=== PATIENT | female | born 1965 | race Caucasian/White ===

== ENCOUNTER 2018-06-25 18:31 | Emergency (ER) | payer MEDICAID ==
[~2018-06-25] VITALS: Ht 160 cm; Wt 77.0 kg
[2018-06-25 18:35] VITALS: Ht 160 cm; Wt 77.0 kg
[2018-06-25] MEDS ORDERED: MECLIZINE 12.5 MG TAB PO ONE (19:00)
[2018-06-25] MEDS ORDERED: MECL12.574 PO (19:59)
--- NOTE | 2018-06-25 20:01 | ERD ---
ER Documentation Chief Complaint Chief Complaint primary complaint anxiety/stress all day, adds c/o dizziness & AGRAWAL since am HPI Patient is a 53-year-old female with thyroid disease who presents with dizziness. The patient was brought in by ambulance. She felt dizzy started 3 days ago. She felt anxious as well and said that she has been under a lot of stress recently. She had nausea but no vomiting. She feels like the room is spinning. She has had no treatment as of yet. She has no fevers. She had cough, fever, and ear pain 2 weeks ago. She says "I think this might be related to stress". Upon review of old medical records this is the patient's first visit to the emergency department. She does not currently have a primary doctor. ROS All systems reviewed and are negative except as per history of present illness. Medications Home Meds Active Scripts Meclizine Hcl* (Antivert*) 12.5 Mg Tab, 25 MG PO Q6H PRN for DIZZINESS, #20 TAB Prov:MEGHAN GALVIN MD 06/25/18 Allergies Allergies: Coded Allergies: No Known Allergy (Unverified , 06/25/18) PMhx/Soc Medical and Surgical Hx: pt denies Surgical Hx History of Surgery: No Anesthesia Reaction: No Hx Neurological Disorder: No Hx Respiratory Disorders: No Hx Cardiac Disorders: No Hx Psychiatric Problems: No Hx Miscellaneous Medical Probl: No (HYPOTHYROIDISM) Hx Alcohol Use: No Hx Substance Use: No Hx Tobacco Use: No Smoking Status: Never smoker FmHx Family History: No diabetes Physical Exam Vitals Vital Signs Date Temp Pulse Resp B/P (MAP) Pulse Ox O2 O2 Flow FiO2 Time Delivery Rate 06/25/18 98.1 73 20 136/83 98 Room Air 20:17 (100) 06/25/18 78 18 137/85 97 Room Air 19:07 (102) 06/25/18 98.3 76 17 142/71 97 18:35 (94) Physical Exam Const: No acute distress Head: Atraumatic Eyes: Normal Conjunctiva ENT: Normal External Ears, Nose and Mouth. Neck: Full range of motion. No meningismus. Resp: Clear to auscultation bilaterally Cardio: Regular rate and rhythm, no murmurs Abd: Soft, non tender, non distended. Normal bowel sounds Skin: No petechiae or rashes Back: No midline or flank tenderness Ext: No cyanosis, or edema Neur: Awake and alert, cranial nerves II through XII intact, strength is 5 out of 5 in all 4 tremors, no slurred speech, negative pronator drift Psych: Normal Mood and Affect Results 24 hrs Laboratory Tests Test 06/25/18 19:06 Bedside Glucose 122 mg/dL Current Medications Medications Dose Sig/Stef Start Time Status Last (Trade) Ordered Route PRN Stop Time Admin Dose Reason Admin Meclizine 25 mg ONCE ONCE 06/25/18 DC 06/25/18 HCl PO 19:00 18:49 (Antivert) 06/25/18 19:01 Procedures/MDM Accu-Chek is normal. EKG read by me: Rate/Rhythm: Regular rate and rhythm at a rate of 77 Intervals: Normal Impression: No evidence of ischemia or arrhythmia Patient is a 51-year-old female presents with dizziness. Accu-Chek is normal. EKG shows no signs of ischemia. I believe her symptoms are consistent with vertigo. I doubt stroke, intracranial mass, or intracranial hemorrhage. I doubt stroke. I believe the risk of doing a CT scan of the brain outweigh the benefits. The patient will be given meclizine and will be discharged with a prescription for meclizine. She will need to follow-up with a local clinics within 1 week and can return if symptoms worsen. Departure Diagnosis: Primary Impression: Dizziness Condition: Fair Patient Instructions: Dizziness, Unk Cause [facility]: [facility] Usted se agrawal hecho un examen mdico de control que le indica que no est en jo condicin que requiera tratamiento urgente en el Departamento de Emergencia. Un estudio ms profundo y el tratamiento de anguiano condicin pueden esperar sin ningn riesgo hasta que usted sea atendida/o en el consultorio de anguiano mdico o jo clnica. Es responsabilidad suya arreglar jo laurita para el seguimiento del sandi. MANEJO DE CONDICIONES NO URGENTES EN EL FUTURO 1) Si usted tiene un mdico de atencin primaria: Usted debera llamar a anguiano mdico de atencin primaria antes de venir al departamento de emergencia. Despus de las horas de consultorio, anguiano doctor o anguiano asociado/a est disponible por telfono. El mdico o enfermero de kike en el servicio telefnico puede asesorarle por julio medio para atender el problema, o sandi contrario se puede programar jo laurita. 2) Si usted no tiene un mdico de atencin primaria: Llame al mdico o clnica de referencia que aparece abajo rani las horas de consultorio para hacer jo laurita para que le vean. CLINICAS: [place] [id number] [phone] [facility] [phone] [address] [facility]. [facility] [phone] [facility]. [place] [phone] [facility] [place] [id number] [phone] [facility]. [phone] [address] [place] [address] Additional Instructions: Llame al doctor nombrado abajo (Referral Sources) MAANA y brian jo LAURITA PARA DENTRO DE JO SEMANA. Dgale a la secretaria que nosotros le instruimos hacer esta laurita.Avise o llame si anguiano condicin se empeora antes de la laurita. MEGHAN GALVIN MD Jun 25, 2018 20:01
[2018-06-25 20:17] VITALS: BP 136/83; PULSE 73; RESP 20
== END 2018-06-25 20:30 | disposition home or self-care (01) ==
LOC: E/R 18:31
DX: R42 Dizziness and giddiness (principal)
CPT/HCPCS: 82962; 93005; Z7610